=== PATIENT | female | born 2000 | race Caucasian/White ===

== ENCOUNTER → 2024-03-09 | Outpatient (CLI) | payer OTHER ==
[2024-03-09 12:33] LABS: BASO # 0.02 K/mm3 (0.02-0.10); EOS # 0.19 K/mm3 (0.04-0.40); EOS % 2.6 % (1.0-5.0); HEMATOCRIT 36.5 % (37.0-47.0); HEMOGLOBIN 11.1 g/dL (12.5-16.0); LYMPH# 2.37 K/mm3 (1.50-4.00); MEAN CELL VOLUME 79 fl (78-100); MEAN CORPUSCULAR HEMOGLOBIN 24 pg (27-31); MEAN CORPUSCULAR HGB CONC 30 g/dL (33-37); MEAN PLATELET VOLUME 10.3 fl (7.4-10.4); MONO # 0.58 K/mm3 (0.20-0.80); NEU # 4.13 K/mm3 (1.40-6.50); PLATELET COUNT 223 K/mm3 (130-400); RED BLOOD COUNT 4.63 M/mm3 (4.10-5.30); RED CELL DISTRIBUTION WIDTH 14.7 % (11.5-14.5); WHITE BLOOD COUNT 7.3 K/mm3 (4.8-10.8)
[2024-03-09 12:41] LABS: ALBUMIN 4.2 g/dL (3.5-5.0)
[2024-03-09 12:43] LABS: CALCIUM 9.3 mg/dL (8.3-10.5)
[2024-03-09 12:44] LABS: TOTAL PROTEIN 6.9 g/dL (6.4-8.3)
[2024-03-09 12:46] LABS: TOTAL BILIRUBIN 0.3 mg/dL (0.2-1.2)
== END ==
LOC: LAB 11:07 → RAD 11:07
PROVIDERS: Physician Assistant
DX: M95.3 Acquired deformity of neck (principal); R07.9 Chest pain, unspecified